=== PATIENT | male | born 1945 | race Caucasian/White ===

== ENCOUNTER → 2016-09-13 | Outpatient (CLI) | payer MEDICARE, OTHER | END | disposition short-term general hospital (02) | LOC: CLORTH 09:26 | DX: M19.011 Primary osteoarthritis, right shoulder (principal); M75.101 Unspecified rotator cuff tear or rupture of right shoulder, not specified as traumatic; M66.322 Spontaneous rupture of flexor tendons, left upper arm ==

== ENCOUNTER → 2016-09-27 | Outpatient (CLI) | payer MEDICARE, OTHER | END | disposition short-term general hospital (02) | LOC: CLORTH 07:37 | DX: M75.111 Incomplete rotator cuff tear or rupture of right shoulder, not specified as traumatic (principal); M19.011 Primary osteoarthritis, right shoulder; M66.321 Spontaneous rupture of flexor tendons, right upper arm ==

== ENCOUNTER 2016-10-25 07:14 | Day surgery (SDC) | payer MEDICARE, OTHER ==
[~2016-10-25] VITALS: Ht 172.7 cm; Wt 77.1 kg
== END 2016-10-25 14:05 | disposition short-term general hospital (02) ==
LOC: SURGOP 07:14
PROC: 0LQ14ZZ Repair Right Shoulder Tendon, Percutaneous Endoscopic Approach (ICD-10-PCS; principal; 2016-10-25)
PROC: 0PB94ZZ Excision of Right Clavicle, Percutaneous Endoscopic Approach (ICD-10-PCS; 2016-10-25)
DX: M75.101 Unspecified rotator cuff tear or rupture of right shoulder, not specified as traumatic (principal); M19.011 Primary osteoarthritis, right shoulder; K21.9 Gastro-esophageal reflux disease without esophagitis; H40.9 Unspecified glaucoma; E78.00 Pure hypercholesterolemia, unspecified; E78.5 Hyperlipidemia, unspecified; E11.9 Type 2 diabetes mellitus without complications; Z88.6 Allergy status to analgesic agent; Z88.8 Allergy status to other drugs, medicaments and biological substances; Z79.84 Long term (current) use of oral hypoglycemic drugs; Z79.899 Other long term (current) drug therapy; Z85.828 Personal history of other malignant neoplasm of skin; Z87.442 Personal history of urinary calculi; Z96.642 Presence of left artificial hip joint
CPT/HCPCS: C1713; J0171; J0330; J0690; J1100; J2250; J2270; J2795; J3010

== ENCOUNTER → 2016-11-08 | Outpatient (CLI) | payer MEDICARE, OTHER | END | disposition short-term general hospital (02) | LOC: CLORTH 10-25 02:43 | DX: Z47.89 Encounter for other orthopedic aftercare (principal) ==